=== PATIENT | female | born 1985 ===

== ENCOUNTER 2017-11-13 11:57 | Emergency (ER) | payer MEDICAID ==
[~2017-11-13] VITALS: Ht 157.5 cm; Wt 98.2 kg
[2017-11-13 11:59] VITALS: TEMP 99
[2017-11-13] MEDS ORDERED: NEXPLANON68 MG ID (12:03)
[2017-11-13] MEDS ORDERED: ADDERALL20 MG PO (12:03)
[2017-11-13] MEDS ORDERED: LATUDA40 MG PO (12:03)
[2017-11-13] MEDS ORDERED: KLONOPIN 0.5MG0.5 MG PO (12:03)
[2017-11-13 12:31] LABS: COLLECTION METHOD CLEAN CATCH
[2017-11-13 12:38] LABS: MUCOUS Present /lpf; PH 6 (5-8); URINE APPEARANCE Hazy; URINE BACTERIA Rare /hpf; URINE BILIRUBIN Negative (NEGATIVE); URINE BLOOD Negative (NEGATIVE); URINE COLOR Yellow; URINE GLUCOSE Negative (NEGATIVE); URINE KETONE Negative (NEGATIVE); URINE LEUKOCYTE ESTERASE Negative (NEGATIVE); URINE NITRATE Negative (NEGATIVE); URINE PROTEIN(semi-quant) Negative (NEGATIVE); URINE RBC 0-2 /hpf; URINE UROBILINOGEN Negative (NEGATIVE)
[2017-11-13 12:52] LABS: BASO # 0.1 (0.0-0.2); EOS # 0.7 (0.0-0.7); EOS % 14.4 % (0-4.0); GRAN % 44.9 % (42.2-75.2); HEMATOCRIT 35.6 % (37.0-47.0); HEMOGLOBIN 12.4 g/dl (12.5-16.0); LYMPH # 1.4 (1.2-3.4); LYMPH % 31.6 % (20.0-51.0); MEAN CELL VOLUME 104 fl (80.0-100.0); MEAN CORPUSCULAR HEMOGLOBIN 36 pg (27.0-31.0); MEAN CORPUSCULAR HGB CONC 35 g/dl (33.0-37.0); MEAN PLATELET VOLUME 9.6 fl (7.4-10.4); MONO # 0.3 (0.1-0.6); MONO % 6.7 % (1.7-9.3); PLATELET COUNT 205 K/mm3 (130-400); RED BLOOD COUNT 3.42 M/mm3 (4.10-5.30); REDCELL DISTRIBUTION WIDTH-CV 15.9 % (11.5-14.5)
[2017-11-13 13:09] LABS: ALANINE AMINOTRANSFERASE 56 U/L (9-52); ALKALINE PHOSPHATASE 108 U/L (50-136); ANION GAP 16 mmol/L (7-16); AST,SGOT 133 U/L (15-37); BILIRUBIN,TOTAL 0.8 mg/dL (0.0-1.0); BLOOD UREA NITROGEN 8 mg/dL (7-17); C-REACTIVE PROTEIN < 0.5 mg/dL (0.0-0.9); CALCIUM 8.3 mg/dL (8.4-10.2); CARBON DIOXIDE 25 mmol/L (22-30); CHLORIDE 101 mmol/L (98-107); CREATININE, serum 0.85 mg/dL (0.52-1.25); GLUCOSE 86 mg/dL (74-106); POTASSIUM 3.8 mmol/L (3.4-5.0); SODIUM 142 mmol/L (137-145); TOTAL PROTEIN 7.2 gm/dL (6.4-8.2)
[2017-11-13 15:11] VITALS: BP 133/89; PULSE 73
== END 2017-11-13 15:15 | disposition home or self-care (01) ==
LOC: COL.ER 11:57
PROVIDERS: Physician Assistant
DX: R19.7 Diarrhea, unspecified (principal); R10.84 Generalized abdominal pain; R11.10 Vomiting, unspecified; Z90.49 Acquired absence of other specified parts of digestive tract
CPT/HCPCS: J1885; J2405; J7030

== ENCOUNTER 2017-11-15 09:46 | Emergency (ER) | payer MEDICAID ==
[~2017-11-15] VITALS: Ht 157.5 cm; Wt 118.2 kg
[~2017-11-15 09:46] MED LIST: ADDERALL20 MG PO; KLONOPIN 0.5MG0.5 MG PO; LATUDA40 MG PO; NEXPLANON68 MG ID
[2017-11-15 09:56] VITALS: TEMP 99
[2017-11-15 11:26] VITALS: BP 117/42
[2017-11-15 11:49] LABS: BASO # 0.1 (0.0-0.2); BASO % 0.7 % (0.0-2.0); EOS # 0.7 (0.0-0.7); EOS % 8.6 % (0-4.0); GRAN # 5.1 (1.4-6.5); GRAN % 67.3 % (42.2-75.2); HEMOGLOBIN 12.7 g/dl (12.5-16.0); LYMPH # 1.4 (1.2-3.4); LYMPH % 18.6 % (20.0-51.0); MEAN CELL VOLUME 104 fl (80.0-100.0); MEAN CORPUSCULAR HEMOGLOBIN 36 pg (27.0-31.0); MEAN CORPUSCULAR HGB CONC 35 g/dl (33.0-37.0); MEAN PLATELET VOLUME 10.1 fl (7.4-10.4); MONO # 0.3 (0.1-0.6); MONO % 4.4 % (1.7-9.3); PLATELET COUNT 197 K/mm3 (130-400); RED BLOOD COUNT 3.53 M/mm3 (4.10-5.30); REDCELL DISTRIBUTION WIDTH-CV 15.9 % (11.5-14.5)
[2017-11-15 11:51] LABS: HEMATOCRIT 36.7 % (37.0-47.0)
[2017-11-15 12:02] LABS: ALBUMIN 4.2 gm/dL (3.5-5.0); BILIRUBIN,TOTAL 0.8 mg/dL (0.0-1.0); CALCIUM 8.3 mg/dL (8.4-10.2); CREATININE, serum 0.88 mg/dL (0.52-1.25); POTASSIUM 3.4 mmol/L (3.4-5.0); TOTAL PROTEIN 7.4 gm/dL (6.4-8.2)
[2017-11-15 12:39] LABS: COLLECTION METHOD CLEAN CATCH
[2017-11-15 12:48] LABS: MUCOUS Present /lpf; PH 6 (5-8); URINE APPEARANCE Hazy; URINE BACTERIA Rare /hpf; URINE BILIRUBIN Negative (NEGATIVE); URINE BLOOD Negative (NEGATIVE); URINE COLOR Straw; URINE GLUCOSE Negative (NEGATIVE); URINE KETONE Negative (NEGATIVE); URINE LEUKOCYTE ESTERASE Negative (NEGATIVE); URINE NITRATE Negative (NEGATIVE); URINE PROTEIN(semi-quant) Negative (NEGATIVE); URINE RBC None Seen /hpf; URINE UROBILINOGEN Negative (NEGATIVE)
[2017-11-15] MEDS ORDERED: ZOFRAN ODT4 MG PO (12:59)
[2017-11-15 13:31] VITALS: PULSE 88
== END 2017-11-15 13:32 | disposition home or self-care (01) ==
LOC: COL.ER 09:46
PROVIDERS: Physician Assistant
DX: R19.7 Diarrhea, unspecified (principal); R11.10 Vomiting, unspecified; Z90.49 Acquired absence of other specified parts of digestive tract